=== PATIENT | female | born 1955 | race American Indian/Alaskan Native ===

== ENCOUNTER 2017-04-04 09:59 | Outpatient (CLI) | payer OTHER ==
--- NOTE | 2017-04-04 15:26 | Mammography Report ---
BILATERAL DIGITAL SCREENING MAMMOGRAM with CAD : 04/04/17 09:59:00 CLINICAL: Routine screening. COMPARISON:10/26/15 and 10/12/13 FINDINGS: The breasts are heterogeneously dense, which may obscure small masses.Stable bilateral benign asymmetries. No mass, architectural distortion or suspicious calcifications. IMPRESSION: No mammographic evidence of malignancy. BI-RADS CATEGORY: 2 -- Benign RECOMMENDATION: Routine mammographic screening in one year. COMMENT: Patient follow-up letters are generated by our [employer] application.
== END 2017-04-04 10:00 | disposition home or self-care (01) ==
LOC: SPVWC 09:59
DX: Z12.31 Encounter for screening mammogram for malignant neoplasm of breast (principal)
CPT/HCPCS: 77067; G0202